=== PATIENT | male | born 1950 | race Caucasian/White ===

== ENCOUNTER → 2017-05-22 | Outpatient (CLI) | payer OTHER, MEDICARE | LOC: BHFA 08:45 | PROVIDERS: ATTEND Internal Medicine Cardiovascular Disease | DX: R07.9 Chest pain, unspecified (principal); R00.2 Palpitations; R01.1 Cardiac murmur, unspecified; E78.5 Hyperlipidemia, unspecified ==

== ENCOUNTER → 2017-06-05 | Outpatient (CLI) | payer OTHER, MEDICARE | LOC: BHFA 14:45 | PROVIDERS: ATTEND Internal Medicine Cardiovascular Disease | DX: R07.9 Chest pain, unspecified (principal) ==

== ENCOUNTER 2017-10-10 16:50 | Inpatient (IN) | payer OTHER, MEDICARE ==
[2017-10-10] MEDS ORDERED: NS 500 ML IV ONE (16:57)
[2017-10-10] MEDS ORDERED: ASPIRIN 81 MG CHEWABLE TAB PO ONE (16:57)
--- NOTE | 2017-10-10 16:57 | EDPHY ---
H & P Time Seen by Provider: 10/10/17 16:52 HPI/ROS: CHIEF COMPLAINT: Chest pain HISTORY OF PRESENT ILLNESS: Patient developed a burning sensation substernal area at 4:30 p.m. while he was working out at the gym doing the rowing machine. Substernal chest burning without radiation. A little bit of associated shortness of breath, symptoms mild to moderate. Slightly better after stopping exertion but not completely gone. REVIEW OF SYSTEMS: Eye: no change in vision ENT: no sore throat Cardiac: HPI Pulmonary: Mildly short of breath, no cough Abdomen: no vomiting, diarrhea, abdominal pain Musculoskeletal: no back pain Skin: no rash Neuro: no headache, no weakness or numbness in extremities. Constitutional: no fever : no urinary symptoms A comprehensive 10 point review of systems is otherwise negative aside from elements mentioned in the history of present illness. PAST MEDICAL HISTORY: Negative Social history: Former smoker General Appearance: Alert and conversant, cooperative. Eyes: No scleral icterus. ENT, Mouth: Normal mucous membranes. Respiratory: Normal respiratory effort, breath sounds equal, lungs are clear to auscultation. Cardiovascular: Regular rate and rhythm. Gastrointestinal: Abdomen is soft and non tender. Neurological: Alert, face symmetric, normal motor and sensory in extremities. Skin: Warm and dry, no rashes. Not diaphoretic. Musculoskeletal: No peripheral edema. Psychiatric: Not agitated. Emergency Department course/MDM: Cardiac alert called at 1654. Oral aspirin. Cardiac catheterization lab. Normal saline 1 L. 1659: Dr. Feliz at patient bedside. Smoking Status: Former smoker Constitutional: Initial Vital Signs Temperature (C) 36.4 C 10/10/17 16:52 Heart Rate 67 10/10/17 16:52 Respiratory Rate 18 10/10/17 16:52 Blood Pressure 120/79 10/10/17 16:52 O2 Sat (%) 98 10/10/17 16:52 O2 Delivery Mode Room Air Allergies/Adverse Reactions: No Known Allergies Allergy (Verified 10/10/17 16:51) Home Medications: Medication Instructions Recorded NK [No Known Home Meds] 10/10/17 Medical Decision Making - Diagnostics EKG Interpretation: 12-lead EKG interpreted by me; official reading is in trace master. My interpretation is sinus rhythm with acute ST elevation and inferior myocardial infarction Differential Diagnosis: Differential diagnosis considered for chest pain including but not limited to myocardial ischemia, aortic dissection, pericarditis, pulmonary embolus, chest wall pain, pleural inflammation and pulmonary infectious causes. Critical Care Time: Critical care time spent by me, Dr. Cooper, exclusively with the care of this patient was 20 minutes, exclusive of PA or [employer] time and exclusive of separate procedures. The organ system at risk was cardiovascular and I ordered the oral aspirin, IV fluids, multiple diagnostics, cardiology consultation emergently; to stabilize the patient and prevent worsening of the patient's condition. - Data Points Laboratory Results: Laboratory Results 10/10/17 16:55 10/10/17 16:55 10/10/17 10/10/17 16:55 16:55 WBC 8.82 10^3/uL 10^3/uL (3.80-9.50) RBC 4.69 10^6/uL 10^6/uL (4.40-6.38) Hgb 15.5 g/dL g/dL (13.7-17.5) Hct 43.7 % % (40.0-51.0) MCV 93.2 fL fL (81.5-99.8) MCH 33.0 pg pg (27.9-34.1) MCHC 35.5 g/dL g/dL (32.4-36.7) RDW 13.1 % % (11.5-15.2) Plt Count 284 10^3/uL 10^3/uL (150-400) MPV 9.5 fL fL (8.7-11.7) Neut % (Auto) 45.8 % % (39.3-74.2) Lymph % (Auto) 42.1 % % (15.0-45.0) [place] % (Auto) 8.4 % % (4.5-13.0) Eos % (Auto) 2.5 % % (0.6-7.6) Baso % (Auto) 1.0 % % (0.3-1.7) Nucleat RBC Rel Count 0.0 % % (0.0-0.2) Absolute Neuts (auto) 4.04 10^3/uL 10^3/uL (1.70-6.50) Absolute Lymphs (auto) 3.71 10^3/uL H 10^3/uL (1.00-3.00) Absolute Monos (auto) 0.74 10^3/uL 10^3/uL (0.30-0.80) Absolute Eos (auto) 0.22 10^3/uL 10^3/uL (0.03-0.40) Absolute Basos (auto) 0.09 10^3/uL 10^3/uL (0.02-0.10) Absolute Nucleated RBC 0.00 10^3/uL 10^3/uL (0-0.01) Immature Gran % 0.2 % % (0.0-1.1) Immature Gran # 0.02 10^3/uL 10^3/uL (0.00-0.10) Sodium 143 mEq/L mEq/L (135-145) Potassium 3.4 mEq/L L mEq/L (3.5-5.2) Chloride 103 mEq/L mEq/L (97-110) Carbon Dioxide 18 mEq/l L mEq/l (22-31) Anion Gap 22 mEq/L H mEq/L (8-16) BUN 18 mg/dL mg/dL (7-23) Creatinine 0.9 mg/dL mg/dL (0.7-1.3) Estimated GFR > 60 Glucose 132 mg/dL H mg/dL (70-100) Calcium 9.6 mg/dL mg/dL (8.5-10.4) Troponin I Pending Departure - Departure Disposition: To OP Cath/Surgery Clinical Impression: Acute AK Qualifiers: Myocardial infarction ST status: ST elevation myocardial infarction Involved coronary artery: unspecified coronary artery Qualified Code(s): I21.3 - ST elevation (STEMI) myocardial infarction of unspecified site Condition: Serious
[2017-10-10 17:05] LABS: PLATELET COUNT 284 10^3/uL (150-400)
--- NOTE | 2017-10-10 17:05 | CPEKG ---
Heart Rate: 65 RR Interval: 923 P-R Interval: 200 QRSD Interval: 108 QT Interval: 440 QTC Interval: 458 P Sherwood: 55 QRS Sherwood: 66 T Wave Sherwood: 81 EKG Severity - ABNORMAL ECG - EKG Impression: SINUS RHYTHM EKG Impression: INFERIOR INJURY, PROBABLE EARLY ACUTE INFARCT EKG Impression: CONSIDER POSTERIOR WALL INVOLVEMENT Electronically Signed By: Vitor Cooper 10-Oct-2017 17:22:53
[2017-10-10] MEDS ORDERED: MIDAZOLAM 2 MG/2 ML VIAL ONE (17:14)
[2017-10-10] MEDS ORDERED: LIDOCAINE 1% 300 MG/30 ML SDV ONE (17:14)
[2017-10-10] MEDS ORDERED: fentaNYL 100 MCG/2 ML INJ ONE ×2 (17:14→18:14)
[2017-10-10] MEDS ORDERED: IOPAMIDOL (ISOVUE-370) 150 ML BTL IV ONE ×2 (17:15→18:32)
[2017-10-10] MEDS ORDERED: BIVALIRUDIN 250 MG/5 ML VIAL IV ONE (17:16)
[2017-10-10] MEDS ORDERED: NITROGLYCERIN 1,500 MCG/15 ML VIAL MISC ONE (17:32)
[2017-10-10] MEDS ORDERED: ATROPINE SULFATE 1 MG/10 ML SYR ONE (17:37)
[2017-10-10] MEDS ORDERED: ABCIXIMAB 10 MG/5 ML VIAL ONE ×2 (17:49→17:53)
[2017-10-10] MEDS ORDERED: PRASUGREL HCL 10 MG TAB ONE (18:18)
[2017-10-10] MEDS ORDERED: NITROGLYCERIN/D5W 50 MG/250 ML BOTTLE IV ONE (18:51)
[2017-10-10] MEDS ORDERED: OXYCODONE/APAP 5/325 TAB PO PRN (19:29)
[2017-10-10] MEDS ORDERED: TEMAZEPAM 15 MG CAP PO PRN (19:29)
[2017-10-10] MEDS ORDERED: ATROPINE SULFATE 1 MG/10 ML SYR IVP PRN (19:29)
[2017-10-10] MEDS ORDERED: LORazepam 2 MG/ML INJ IVP PRN (19:29)
[2017-10-10] MEDS ORDERED: ONDANSETRON 4 MG/2 ML VIAL IVP PRN (19:29)
[2017-10-10] MEDS ORDERED: HYDROCODONE/APAP 5/325 TAB PO PRN (19:29)
[2017-10-10] MEDS ORDERED: PRASUGREL HCL 10 MG TAB PO ONE (19:29)
[2017-10-10] MEDS ORDERED: NITROGLYCERIN/DEXTROSE 250 ML IV SCH (19:30)
[2017-10-10] MEDS ORDERED: NS 1,000 ML IV SCH (19:30)
--- NOTE | 2017-10-10 19:51 | GHP ---
[f rep st] HISTORY AND PHYSICAL DATE OF ADMISSION: 10/10/2017 REASON FOR ADMISSION: Acute inferoposterior ST-segment elevation myocardial infarction. HISTORY OF PRESENT ILLNESS: The patient is a 67-year-old male with a history of hyperlipidemia and d ocumented coronary atherosclerosis based on a CT coronary calcium score performed in June of last year. He has never had a clinical cardiac episode. Today, he was exercising at the gym when he deve loped significant midsternal burning chest discomfort. There was no radiation, associated shortness of breath, nausea, or diaphoresis. He stopped exercising but his symptoms persisted. Therefore, he presented to the emergency room at [facility]. His initial ECG demonstrated at ed[facility] [address]-segment elevation. There was also a deep ST depression with inverted T-waves in the early precordial leads consistent with an acute inferoposterior myocardial infarction. In the ER, he continued to experience chest discomfort on a level 4/10 to 5/10. He was hemodynamically sta ble and did not exhibit any evidence of congestive heart failure. Past cardiac history and testing: He has a history of hyperlipidemia. Lipid panel performed in 2016 demonstrated a total cholesterol of 243, with HDL 53, LDL 170, and triglycerides 104. The p earline was started on statin therapy after an EBCT scan confirmed the presence of coronary atheroscle rosis. He developed side effects from his statin and interrupted it for some period of time. His CT coronary calcium score from June demonstrated a total Agatston score of 523.7. The left anterior descending had a total score of 463.9, the circumflex had a score of 59.8, and the RCA had a score o f zero. He was seen in our office in May for an exercise stress test. He had a standard exerc ise treadmill study during which he exercised 7 minutes 15 seconds of the Dick protocol, reaching 95 % of his maximum predicted heart rate. He had no symptoms. Upsloping ST-segment depression of 1.5 m m was noted in the inferolateral leads and was deemed not to be consistent with an ischemic response. He had an echocardiogram also in May of last year which demonstrated mild left ventricular di latation. His ejection fraction was 63% without regional wall motion abnormalities. He had mild aor tic valve calcification but no other structural valvular abnormalities. He had trivial aortic regurg itation, mild mitral regurgitation, and no tricuspid regurgitation. PAST MEDICAL HISTORY: Additional issues include a Dupuytren contracture, gout, and hyperglycemia. PAST SURGICAL HISTORY: He has no prior surgical history. FAMILY HISTORY: Noncontributory. MEDICATIONS: He takes aspirin but no other medications. ALLERGIES: No known drug allergies. SOCIAL HISTORY: He is . His accompanies him to the hospital today. He does not have an y offspring. He does not smoke. He consumes 2-3 alcoholic beverages a night. He works in [employer]. REVIEW OF SYSTEMS: Apart from the chest discomfort that prompted today's hospital encounter, a 10-po int review was negative. PHYSICAL EXAMINATION: VITAL SIGNS: Heart rate in the 60s with sinus rhythm on the monitor. Blood p ressure 120/79. O2 saturation 98% on room air. GENERAL: This is a well-developed, well-nourished m arline in moderate discomfort. He is alert and oriented x3. HEAD AND NECK: No scleral icterus. Mucou s membranes moist. Carotid pulses 2+ without bruits. There is no JVD. CHEST: Lung evangelista clear to auscultation. CARDIAC: Regular rate and rhythm with a normal S1 and S2. There is no murmur or gal lop. ABDOMEN: Soft, nontender, nondistended, with normal bowel sounds. EXTREMITIES: 2+ pulses and no peripheral edema. DATA REVIEWED: ECG: His ECG demonstrates normal sinus rhythm. There are no Q-waves or conduction s ystem disturbances. He has 2-[address]-segment elevation in leads II, III, and AVF. He has deep ST -segment depression in leads V1 through V3. Laboratory studies pending at the time of this dictation. IMPRESSION: This is a 67-year-old male who presents with chest discomfort and ECG findings diagnosti c of an acute inferoposterior myocardial infarction. He is hemodynamically stable and does not exhibi t any evidence of congestive heart failure. Preparations are underway to take the patient to the cardiac catheterization lab. There was a modest delay because simultaneous cases were taking place in both of the angiographic rooms. At the time I completed my assessment of the patient, one of the procedures has been completed. Dr. Light, who i s on-call this evening for our group, is now available and will perform the patient's catheterization and percutaneous coronary intervention. The patient will require a hospital stay of greater than 2 midnights for care of his myocardial infarction. /[id number]/MODL
[2017-10-10] MEDS ORDERED: PROTOCOL MAGNESIUM 1 DOSE IV PRN (20:19)
[2017-10-10] MEDS ORDERED: PROTOCOL POTASSIUM 1 DOSE MISC PRN (20:19)
--- NOTE | 2017-10-10 21:12 | CPIP ---
[f rep st] INVASIVE CARDIAC PROCEDURE DATE OF PROCEDURE: 10/10/2017 PROCEDURES PERFORMED: 1. Selective coronary angiography. 2. Left heart catheterization. 3. Left ventriculogram. 4. Percutaneous transluminal coronary angioplasty and stent placement of circumflex obtuse marginal system with the use of 4.0 X 16 Synergy drug-eluting stent. 5. Intracoronary thrombolysis with intracoronary ReoPro. COMPLICATIONS: None. DIRECTOR OF CATERING: John Light MD. INDICATIONS/APPROPRIATE USE CRITERIA: The patient has presented to the hospital with acute ST-segmen t elevation myocardial infarction involving the inferior wall and suspected posterior extension. Ple ase see the H and P dictated by Dr. Feliz for the patient's admission H and P. I was asked to gill at the patient tonight because I was b2b sales consultant. I did evaluate the patient before the procedure and it did appear to me that he was having an acute inferior and true posterior NJ. Cardiac catheterizatio n was recommended. PROCEDURE IN DETAIL: After informed consent was obtained, n.p.o. status was confirmed. The region o f the right groin was cleaned, prepped, and draped in sterile fashion. Approximately 5 cc of 1% lido stephanie were utilized for local anesthesia. A micropuncture set was used to gain access to the right c ommon femoral artery with single anterior puncture of the vessel. The patient underwent the previous ly-mentioned diagnostic procedures only with the use of an AR1 for the right coronary artery and a 6- Ivorian JL4 guiding catheter. Standard wire exchange technique was utilized for all catheter exchange s. I initially went up with a right coronary catheter, suspecting a nondominant right coronary given the patient's EKG findings. A after I could not easily intubate the right coronary artery wi th the JR4 indicated it was a nondominant vessel. We then proceeded with placement of a 6-Ivorian JR4 guiding catheter, documenting a total occlusion of the circumflex posteriorly proximal to the true c ircumflex and PDA vessels as well as OM branch. The left main coronary lumen is approximately 6 mm i n size, trifurcate into an LAD, ramus and circumflex system. As I mentioned, the circumflex is occlu ded with clot and staining consistent with acute myocardial infarction and is definitely acute infarc t related artery. The LAD arises in its usual location, giving rise to 2 diagonal branches, all of w hich were free of significant flow-limiting disease. Luminal irregularity consistent with underlying atherosclerosis is present, and linear atherosclerotic plaque is noted on the inferior border of the LAD proper. In the mid LAD, there is a prominent muscle bridge with near occlusion of the blood ves susan during systole over approximately 15-20 mm length. The LAD thereafter coursed the anterior apex and wraps around the apex moderately in a typical bifurcated and forked tongue appearance. We then u sed the Intuition wire to cross the lesion in question, advanced that into the obtuse marginal branch . A balloon angioplasty was accomplished, and establishment of the door to balloon time was establis hed with the balloon. There was evidence of a large residual thrombus with improvement to GERONIMO 1 liz w in the circumflex, obtuse marginal, and PDA branches. Because of the large volume of the thrombus and suspected platelet-rich thrombus environment, we did proceed with intracoronary ReoPro administra tion, which did improve the flow somewhat. I then placed a second wire into the left circumflex PDA and ballooned into that area as well. I pulled the circumflex obtuse marginal wire and then stented the circumflex proper trying to trap the majority of the clot against the vessel wall. I then balloo jo ann distally into the circumflex proper, pulled the balloon back and the stent delivery system back i nto the proximal circumflex, leaving the wire past the LAD and then redirected the wire into the circ umflex obtuse marginal branch and ballooned that open as well to try to get a flared end to the dista l stent. This caused no reflow in the obtuse marginal branch. We then reopen with the previously me ntioned 2-0 balloon. The patient continued to have residual ST-segment elevation and pain. The only branch that I could see in the circumflex system that was not open was a small subsegmental branch, which I did redirect a second wire into and ballooned that open. Because the patient continued to silverman ve pain, I became concerned that there may be a concomitant infarction in a codominant coronary on th e right side. We therefore performed a ventriculogram documenting the typical distal left circumflex obtuse marginal infarction. The basal and inferior segment of the heart appeared to be judson relatively normally, and the apex and anterior wall were actually hypercontractile with an ejection f raction that was 45% to 50% at minimum. The LVEDP was measured at 23, and there was no evidence of a ortic stenosis upon pullback across the aortic valve. It became apparent that it was likely that the re was a nondominant right coronary. A variety of catheters, including an AL1 catheter, Chet Wri ght, were used to try to selectively intubate the right coronary, which were unsuccessful. Ultimatel y, an AR1 was used with success to selectively inject the right coronary. This demonstrated excellen t GERONIMO-3 flow into a nondominant right with a fairly prominent atrial branch. There was no evidence of thrombus or staining to suggest an acute infarction of this nondominant vessel. Because of the re sidual ST-segment elevation and discomfort, we did go back with a 6-Ivorian diagnostic catheter and se lectively injected the left coronary system again, and this demonstrated brisk and GERONIMO-3 flow to the PDA, PLV, and circumflex obtuse marginal branches. FINAL IMPRESSION: Successful balloon angioplasty, acute infarct angioplasty, and stent implantation. The patient will be admitted in ICU in serious but stable condition on low-dose IV nitroglycerin fo r the residual ST-segment elevation chest discomfort. /[id number]/MODL
[2017-10-10 21:46] LABS: CREATINE KINASE 2729 IU/L (0-224)
[2017-10-10] MEDS ORDERED: MAGNESIUM SULF 1 GM/DEXTROSE 100 ML IV ONE (22:01)
[2017-10-11] MEDS ORDERED: MAGNESIUM SULF 1 GM/DEXTROSE 100 ML IV ONE (05:25)
[2017-10-11 05:46] LABS: CREATINE KINASE 2170 IU/L (0-224)
[2017-10-11] MEDS: POTASSIUM Cl (KCl) 10 MEQ in D5W 100 ML IV SCH ×2 (06:09→09:48)
[2017-10-11] MEDS ORDERED: ATROPINE SULFATE 1 MG/10 ML SYR ONE (06:37)
[2017-10-11] MEDS ORDERED: LISINOPRIL 5 MG TAB PO SCH ×2 (09:00→12:02)
--- NOTE | 2017-10-11 09:01 | CPEKG ---
Heart Rate: 50 RR Interval: 1200 P-R Interval: 173 QRSD Interval: 88 QT Interval: 472 QTC Interval: 431 P Flint: 44 QRS Flint: 23 T Wave Flint: 53 EKG Severity - ABNORMAL ECG - EKG Impression: SINUS BRADYCARDIA EKG Impression: INFERIOR INFARCT. EKG Impression: PROBABLE POSTERIOR INFARCT EKG Impression: COMPARED WITH 10/10/2017 AT 4:53 P.M., ST ELEVATION HAS RESOLVED Electronically Signed By: Keke Faulkner 11-Oct-2017 18:09:13
[2017-10-11] MEDS: ASPIRIN 325 MG TAB PO SCH (09:05)
[2017-10-11] MEDS: PRASUGREL HCL 10 MG TAB PO SCH (09:05)
[2017-10-11] MEDS: ATORVASTATIN CALCIUM 40 MG TAB PO SCH (09:05)
[2017-10-11] MEDS ORDERED: POTASSIUM CL 20 MEQ TAB PO ONE (09:30)
[2017-10-11] MEDS: CARVEDILOL 3.125 MG TAB PO SCH ×2 (09:47→19:10)
--- NOTE | 2017-10-11 11:10 | ECHO ---
[email or web address] [address] [address] Main: [phone] Fax: Transthoracic Echocardiogram Name: MARIA GUADALUPE MOSS MR#: [id number] Study Date: 10/11/2017 Study Time: 08:19 AM Date of : 1950 Age: 67 year(s) Height: 182.9 cm (72 in.) Weight: 98.43 kg (217 lb.) BSA: 2.21 m2 Gender: Male Examination: Echo Indication: Inferior and true posterior IN Image Quality: Contrast: Requested by: John Light BP: 94 mmHg/57 mmHg Heart Rate: Rhythm: Normal sinus rhythm Indication: Inferior and true posterior IN Procedure Staff Detonator Maker: Shalom Lu RDCS Reading Physician: William Feliz Requesting Provider: Conclusions: Normal size left ventricle. There is basilar to mid inferolateral and basilar to mid inferior hypokinesis. The EF is estimated at 45-50%. Normal appearing valvular structures. No significant valve dysfunction. Measurements: Chambers Valvular Assessment AV/MV Valvular Assessment TV/PV Normal Normal Normal Name Value Range Name Value Range Name Value Range IVSd (2D): 1.2 cm (0.6 cm-1.1 AV Vmax: 1.37 m/s (1 m/s-1.7 PV Vmax: 0.71 m/s (0.6 m/s-0.9 cm) m/s) m/s) LVDd (2D): 5.1 cm (4.2 cm-5.9 AV maxP mmHg ( - ) PV PGmax: 2 mmHg ( - ) cm) LVOT Vmax: 0.91 m/s (0.7 m/s-1.1 LVDs (2D): 4.0 cm (2.1 cm-4 m/s) cm) MV E Vmax: 0.88 m/s ( - ) LVPWd (2D): 1.2 cm (0.6 cm-1 MV A Vmax: 0.76 m/s ( - ) cm) MV E/A: 1.16 ( - ) LVEF (BP): 54 % (>=55 %) Continued Measurements: Chambers Valvular Assessment AV/MV Name Value Name Value LADs Lon.4 cm MV E/E' Septal: 19.30 LA Area: 16.2 cm2 MV E/E' Lateral: 15.40 Findings: Left Ventricle: Patient: MARIA GUADALUPE MOSS Study Date: 10/11/2017 Page 1 of 2 08:19 AM Normal size left ventricle. There is basilar to mid inferolateral and basilar to mid inferior hypokinesis. The EF is estimated at 45-50%. Right Ventricle: Normal size right ventricle. Normal RV function. Left Atrium: The left atrium is normal in size. Right Atrium: The right atrium is normal in size. Mitral Valve: The mitral valve is normal in appearance and function. There is no mitral valve regurgitation. Aortic Valve: The aortic valve is tri-leaflet and functions normally. Tricuspid Valve: The tricuspid valve is normal in appearance and function. Pulmonic Valve: The pulmonic valve is normal in appearance and function. Aorta: The aorta is normal. Pericardium: No pericardial effusion. (No Signature Object) Patient: MARIA GUADALUPE MOSS Study Date: 10/11/2017 Page 2 of 2 08:19 AM [id number]
[2017-10-11] MEDS ORDERED: ACETAMINOPHEN 325 MG TAB PO PRN (13:37)
[2017-10-11] MEDS ORDERED: PROTOCOL POTASSIUM 1 DOSE MISC PRN (14:50)
[2017-10-11 15:16] LABS: CREATINE KINASE 2078 IU/L (0-224)
--- NOTE | 2017-10-11 15:22 | PDCARPN ---
Cardiology Progress Note Assessment/Plan: Inferoposterior ST Elevation NM: No further chest discomfort. ST segment elevation on ECG resolved. Has minimal inferior Q-waves. CPK peaked at 2729. Troponin peaked at 79.9. Coronary Artery Disease: s/p PCI of occluded, dominant circumflex with placement of a single drug-coated stent. PTCA of distal circumflex and OM for significant thrombus burden. Nondominant RCA has mild to moderate irregularities. Mid-LAD demonstrates a myocardial bridge but no significant atherosclerosis. - Aggressive secondary prevention. - Patient now willing to take atorvastatin. - Dual antiplatelet therapy for 12 months. Ischemic Cardiomyopathy: LVEF 40-45%. No signs or symptoms of CHF. Based on early presentation and PCI, expect that his LV function should improve to some degree. - Continue beta jose miguel and LETI inhibitor. 10/11/17 15:19 Subjective: No chest pain. Reviewed/Discussed With: family Objective: Vital Signs (8 Hrs) Pulse Resp BP Pulse Ox 10/11/17 12:00 49 L 18 103/56 L 98 10/11/17 09:00 52 L 18 94/56 L 94 Intake/Output (24 Hrs) 10/10/17 10/11/17 10/12/17 05:59 05:59 05:59 Intake Total 1625 Output Total 740 300 Balance -740 1325 Intake: Oral (ml) 750 IV Infused (ml) 875 Nitroglycerin/Dextrose 11 250 ml @ 3 mls/hr IV CONT CRISTIAN Rx#:[id number] Ns 1,000 ml @ 100 mls/hr 864 IV CONT CRISTIAN Rx#: [id number] Output: Urine (ml) 740 300 Urinal 740 300 Other: Weight 98.8 kg Number of Voids Urinal 1 Result Diagrams: 10/10/17 16:55 10/11/17 14:00 Cardiac Labs: Cardiac Lab Results (72 Hrs) 10/11/17 10/11/17 10/11/17 14:00 13:28 04:40 CK-MB (CK-2) Fraction 90.20 H Cancelled 144.00 H Troponin I 79.200 H Cancelled 79.900 H 10/10/17 20:50 CK-MB (CK-2) Fraction 164.00 H Troponin I 57.200 H - Physical Exam Constitutional: WDWN, no apparent distress Eyes: anicteric sclera Ears, Nose, Mouth, Throat: moist mucous membranes Cardiovascular: regular rate and rhythm, no murmurs, no rubs, no gallops Respiratory: clear to auscultate bilat Gastrointestinal: normoactive bowel sounds, no tenderness, no masses Skin: no edema Neurologic: AAOx3 Psychiatric: not anxious ICD10 Worksheet Patient Problems: Problems Problem Status Onset Acute NM Acute chronic disease mgmt/transitional care Acute
--- NOTE | 2017-10-11 16:03 | ASMTCASEMG ---
Living Arrangements What is your living Answers: With Spouse arrangement? Who do you live with? Type Of Residence What kind of residence do Answers: House you live in? Discharge Plan Comments Coordination Status Comments Notes: Patient is a 67yo male who was admitted for an acute WA. Patient had a stent procedure and is recovering well. No therapies have been ordered. Patient likely to go to the floor today and probably d/c independent. CM available if d/c needs arise. Date Signed: 10/11/2017 04:02 PM Electronically Signed By:Sylwia Cowart LCSW
--- NOTE | 2017-10-11 16:11 | GCON ---
[f rep st] CONSULTATION CRITICAL CARE CONSULT DATE OF CONSULTATION: 10/11/2017 HISTORY OF PRESENT ILLNESS: This patient is a 67-year-old male with a history of hyperlipidemia and hyperglycemia but not orquidea diabetes, who has been fairly active and stable but yesterday had chest p ain, came to the emergency department, was found to have an ST-elevation myocardial infarction, went to the label printer where he underwent intervention with stent placement. He has done very well after th at; his blood pressure was somewhat low, but has recovered mostly on its own. His heart rate was in the 40s, but he typically runs low in the 50s, and is without symptoms at this time. REVIEW OF SYSTEMS: Otherwise negative. PAST MEDICAL HISTORY: Includes: 1. Gout. 2. Hyperlipidemia. 3. Hyperglycemia. 4. Vitamin D deficiency. 5. Dupuytren's contractures. PAST SURGICAL HISTORY: None. SOCIAL HISTORY: Nonsmoker. Drinks occasional alcohol. No IV drug use. FAMILY HISTORY: Includes stroke, leukemia and hypertension. CURRENT MEDICATIONS: Include [place], aspirin, Lipitor, Coreg which has been held, Zestril, Zofran, Ef fient, Restoril p.r.n. PHYSICAL EXAM: VITAL SIGNS: He was afebrile. Blood pressure currently 103/56, heart rate 49 in sin us maggie, respirations 18, oxygen saturation 98% on room air. GENERAL: He is very pleasant man in n o apparent distress. Able to speak in full sentences without using accessory muscles for breathing. HEENT: Pupils equally round and reactive to light. Nonicteric and noninjected. Mucous membranes m oist without erythema or exudate. NECK: Supple without adenopathy or jugular vein distention. RESP IRATORY: Breath sounds were clear to auscultation bilaterally without wheezes, rubs, rales. HEART: Regular rate and rhythm without murmurs, rubs, or gallops. ABDOMEN: Soft, nontender, nondistended without hepatosplenomegaly. Groin showed no evidence of hematoma. EXTREMITIES: No clubbing, cyanos is, or edema. NEUROLOGIC: Nonfocal, including cranial nerves, deep tendon reflexes. SKIN: Warm an d dry, without evidence of rash. OBJECTIVE DATA: Includes a normal CBC from yesterday. His basic metabolic panel shows potassium of 3.4, which is currently being replaced. His serum bicarb 16, anion gap of 9, creatinine 0.6, LDL was at 70. ASSESSMENT AND PLAN: 1. Acute ST-elevation myocardial infarction, from which he is recovering from quite well. He had an intervention. He is relatively stable and can probably transfer to the PCU at this time. 2. Sinus bradycardia. I believe that he is very active and aerobically, this is probably his baseli ne as he reports, and no further intervention is required. We may need to consider holding back on a beta jose miguel at this time for that reason. He is otherwise stable. /[id number]/MODL
--- NOTE | 2017-10-12 05:45 | CPEKG ---
Heart Rate: 61 RR Interval: 984 P-R Interval: 164 QRSD Interval: 96 QT Interval: 448 QTC Interval: 452 P [place]: 47 QRS [place]: 58 T Wave [place]: -33 EKG Severity - ABNORMAL ECG - EKG Impression: SINUS RHYTHM EKG Impression: LOW VOLTAGE IN FRONTAL LEADS EKG Impression: INFERIOR MYOCARDIAL INFARCTION. EKG Impression: NONSPECIFIC T ABNORMALITIES, INFERIOR LEADS EKG Impression: COMPARED WITH 10/11/2017 AT 8:59 A.M., NO SIGNIFICANT CHANGE Electronically Signed By: Keke Faulkner 12-Oct-2017 14:21:51
[2017-10-12 08:19] VITALS: BP 133/63; RESP 18; TEMP 99.2; O2SAT 94
[2017-10-12] MEDS: PRASUGREL HCL 10 MG TAB PO SCH (08:20)
[2017-10-12] MEDS: ATORVASTATIN CALCIUM 40 MG TAB PO SCH (08:20)
[2017-10-12] MEDS: ASPIRIN 325 MG TAB PO SCH (08:20)
[2017-10-12] MEDS: CARVEDILOL 3.125 MG TAB PO SCH (08:20)
[2017-10-12 08:23] VITALS: PULSE 90
--- NOTE | 2017-10-12 08:54 | PDCARPN ---
Cardiology Progress Note Chief Complaint: Admitted with Acute IL on Oct 10 Assessment/Plan: Assessment: 1. STEMI 2. PCI to LCX 3. ICM with LVEF 45-50% Plan: 1. Ok to discharge home today 2. He has been seen by cardiac rehab 3. He has follow up with Dr. Feliz for next week 4. Discussed post Left Heart Cath care of groin site 5. Medications reviewed. 10/12/17 08:52 Subjective: Mr. Vega is feeling well this morning. No new complaints. Vital signs stable. No events on telemetery. Noted chronic bradycardia which is his baseline. Labwork stable. Groin site without hematoma or ecchymosis. Reviewed/Discussed With: multidisciplinary team Time Spent With Patient: 25 min Objective: Vital Signs (8 Hrs) Temp Pulse Resp BP Pulse Ox 10/12/17 08:21 133/63 H 10/12/17 08:20 90 133/63 H 10/12/17 08:16 37.3 C 64 18 133/63 H 94 10/12/17 04:19 37.7 C 63 16 105/61 92 Intake/Output (24 Hrs) 10/11/17 10/12/17 10/13/17 05:59 05:59 05:59 Intake Total 2875 Output Total 740 300 Balance -740 2575 Intake: Oral (ml) 2000 IV Infused (ml) 875 Nitroglycerin/Dextrose 11 250 ml @ 3 mls/hr IV CONT CRISTIAN Rx#:[id number] Ns 1,000 ml @ 100 mls/hr 864 IV CONT CRISTIAN Rx#: [id number] Output: Urine (ml) 740 300 Urinal 740 300 Other: Weight 98.8 kg Number of Voids Toilet 2 Urinal 1 4 Result Diagrams: 10/10/17 16:55 10/12/17 04:15 Cardiac Labs: Cardiac Lab Results (72 Hrs) 10/11/17 10/11/17 10/11/17 14:00 13:28 04:40 CK-MB (CK-2) Fraction 90.20 H Cancelled 144.00 H Troponin I 79.200 H Cancelled 79.900 H 10/10/17 20:50 CK-MB (CK-2) Fraction 164.00 H Troponin I 57.200 H - Physical Exam Constitutional: WDWN Ears, Nose, Mouth, Throat: moist mucous membranes Cardiovascular: regular rate and rhythm, no murmurs, no rubs, no gallops Peripheral Pulses: 2+: carotid (R), carotid (L) Respiratory: clear to auscultate bilat Neurologic: AAOx3, CN II-XII grossly intact Psychiatric: cooperative, interactive, following commands ICD10 Worksheet Patient Problems: Problems Problem Status Onset Acute IL Acute chronic disease mgmt/transitional care Acute
--- NOTE | 2017-10-12 09:24 | GDS ---
[f rep st] DISCHARGE SUMMARY INDICATION FOR ADMISSION: Acute ST-segment elevation inferior posterior myocardial infarction. HOSPITAL COURSE: [facility] with compla ints of chest pain that began while on his rowing machine. He was found to have inferior posterior a cute myocardial infarction and went directly to cardiac catheterization lab. He was found to have a proximal occlusion of his dominant circumflex vessel. He underwent a single stent with a 4.0 x 16 mm Synergy drug-eluting stent to obtuse marginal branch of the circumflex vessel. He tolerated the pro cedure well. There was intracoronary thrombus and he required intracoronary ReoPro as well. His pos toperative course was uneventful. Postoperative echocardiogram demonstrated LVEF of 45% to 50%. Mon itoring on telemetry demonstrated chronic sinus bradycardia. He is known to have chronic bradycardia at home. On the morning of October 12, 2017, he was stable for discharge. Vital signs were stable. Groin sit e was stable. No evidence of hematoma or ecchymosis, and no events on telemetry. He was discharged home on the following medications: 1. Aspirin 325 mg once daily. 2. Effient 10 mg daily. 3. Coreg 3.125 mg p.o. b.i.d. 4. Lisinopril 2.5 mg once daily. 5. Atorvastatin 80 mg daily. Changes to his medications include increasing atorvastatin to 80 mg daily and increasing his aspirin from 81-325 mg daily. PLAN AT TIME OF DISCHARGE: 1. Patient be discharged home. 2. The patient has been seen by cardiac rehab, and will plan to start after his appointment with Dr. Feliz. 3. Patient has been arranged for followup with Dr. Feliz next week. 4. Medications have been reviewed in detail. /[id number]/MODL
--- NOTE | 2017-10-13 16:05 | ASDISCHSUM ---
Discharge Information Plan Status:Home with No Needs Medically Cleared to Leave:10/11/2017 Discharge Date:10/12/2017 10:28 AM CM D/C Disposition:Home, Routine, Self-Care ADT D/C Disposition:Home, Routine, Self-Care Projected Discharge Date:10/12/2017 12:00 AM Transportation at D/C:Family Discharge Delay Reason: Follow-Up Date:10/12/2017 12:00 AM Discharge Slot: Final Diagnosis:Acute AK Placement Information Patient Contact Information Contact Name:MORENO Relationship: Address:[address] City:[place] Alternate Phone: [facility]/Zip Code:[place] [address] Email: Financial Information Financial Class: Primary Plan Desc:MEDICARE INPATIENT Primary Plan Number:[id number] Secondary Plan Desc:[employer]/MDR SUPPLEMENT Secondary Plan Number:[id number] Assessment Information [facility] Initial CM Assessment Living Arrangements What is your living Answers: With Spouse arrangement? Who do you live with? Type Of Residence What kind of residence do Answers: House you live in? Discharge Plan Comments Coordination Status Comments Notes: Patient is a 67yo male who was admitted for an acute AK. Patient had a stent procedure and is recovering well. No therapies have been ordered. Patient likely to go to the floor today and probably d/c independent. CM available if d/c needs arise. Date Signed: 10/11/2017 04:02 PM Electronically Signed By:Sylwia Cowart LCSW Case Management Discharge Plan Note Case Management Discharge Discharge Order Complete? Answers: Yes Patient to Obtain Answers: via Family Medications Transportation Arranged Answers: Family/Friends Transport will Pick (Date 10/12/2017 12:00 AM & Time) Family Notified Answers: Yes Notes: Family to transport Discharge Comments Notes: Patient has been discharged. No needs. Date Signed: 10/13/2017 04:04 PM Electronically Signed By:Massiel Nelson LCSW Intervention Information Intervention Type:*Occurence 72 Date of Service:10/10/2017 04:52 PM Patient Type:Inpatient Staff Member:SPARKLE Flores, Ailin Hours:0.25 Discipline: Severity:1 (0-1 Hours) Comment:[facility] 72 for 10/10/2016 16:52 ( start of care in ED obs status to 10/11/2017 09:38 as jackosn nt discharged 10/12/2017 09:02 (< 2 MN LOS after start of care in ED 10/10/2017 16:52, 1st MN obs status , inpatient admit order written 10/11/2017 09:38).
== END 2017-10-12 10:28 | disposition home or self-care (01) | DRG 247 ==
LOC: F2N 19:08
PROVIDERS: ADMIT Internal Medicine Interventional Cardiology; ATTEND Internal Medicine Interventional Cardiology
PROC: B2111ZZ Fluoroscopy of Multiple Coronary Arteries using Low Osmolar Contrast (ICD-10-PCS; principal; 2017-10-10)
PROC: B2151ZZ Fluoroscopy of Left Heart using Low Osmolar Contrast (ICD-10-PCS; principal; 2017-10-10)
PROC: 3E073PZ Introduction of Platelet Inhibitor into Coronary Artery, Percutaneous Approach (ICD-10-PCS; principal; 2017-10-10)
PROC: 027034Z Dilation of Coronary Artery, One Artery with Drug-eluting Intraluminal Device, Percutaneous Approach (ICD-10-PCS; principal; 2017-10-10)
PROC: 4A023N7 Measurement of Cardiac Sampling and Pressure, Left Heart, Percutaneous Approach (ICD-10-PCS; principal; 2017-10-10)
DX: I21.19 ST elevation (STEMI) myocardial infarction involving other coronary artery of inferior wall (principal); I25.10 Atherosclerotic heart disease of native coronary artery without angina pectoris; R00.1 Bradycardia, unspecified; E78.5 Hyperlipidemia, unspecified; E55.9 Vitamin D deficiency, unspecified; M10.9 Gout, unspecified; Z87.891 Personal history of nicotine dependence
CPT/HCPCS: 81225-90; 96374; C1725; C1760; C1769; C1874; C1887; C9606; J0130; J0461; J0583; J1644; J2250; J2405; J3010; J3475; Q9967

== ENCOUNTER → 2018-01-06 | Outpatient (CLI) | payer OTHER, MEDICARE | LOC: BHFA 14:00 | PROVIDERS: ATTEND Internal Medicine Interventional Cardiology | DX: I25.10 Atherosclerotic heart disease of native coronary artery without angina pectoris (principal) ==

== ENCOUNTER 2018-02-04 04:29 | Observation (INO) | payer OTHER, MEDICARE ==
--- NOTE | 2018-02-04 04:45 | EDPHY ---
H & P Stated Complaint: right side CP Time Seen by Provider: 02/04/18 04:35 HPI/ROS: Chief Complaint: Chest pain, palpitations HPI: This is a 67-year-old male with a history of an inferior ST segment elevation myocardial infarction in September of this year. He was seen here and had a stent placed by Dr. Feliz. Patient woke at 2:30 a.m. This morning with a feeling of palpitations and the pain in his right upper back. That discomfort was a 4/10. It lasted for about 30 min. The palpitations continued in then he developed some substernal chest tightness, this too was about a 4/10 and is persisted. This does not feel like his prior myocardial infarction. Is described as a tightness in his chest. Some mild shortness of breath. No recent illness. No cough. No fevers or chills. No leg pain or swelling. No periods of immobility. No nausea or vomiting. There been no aggravating or alleviating factors. ROS: 10 point Review of Systems is negative except as noted in the HPI. PMH: ST segment myocardial infarction in September, bradycardia Social History: Remote history of smoking, occasional alcohol, no recreational drug use Family History: non-contributory Physical Exam: Gen: Awake, Alert, No Distress HEENT: Nose: no rhinorrhea Eyes: PERRLA, EOMI Mouth: Moist mucosa Neck: Supple, no JVD Chest: nontender, lungs clear to auscultation Heart: S1, S2 normal, no murmur Abd: Soft, non-tender, no guarding Back: no CVA tenderness, no midline tenderness Ext: no edema, non-tender Skin: no rash Neuro: CN II-XII intact, Sensation grossly intact, Strength 5/5 in bilateral upper and lower extremities - Personal History Current Tetanus/Diphtheria Vaccine: No Current Tetanus Diphtheria and Acellular Pertussis (TDAP): No Tetanus Vaccine Date: 2006 - Medical/Surgical History Hx Asthma: No Hx Chronic Respiratory Disease: No Hx Diabetes: No Hx Cardiac Disease: Yes Hx Renal Disease: No Hx Cirrhosis: No Hx Alcoholism: No Hx HIV/AIDS: No Hx Splenectomy or Spleen Trauma: No Other PMH: gout, [place] - Social History Smoking Status: Former smoker Constitutional: Initial Vital Signs Temperature (C) 36.5 C 02/04/18 04:33 Heart Rate 65 02/04/18 04:33 Respiratory Rate 16 02/04/18 04:33 Blood Pressure 139/92 H 02/04/18 04:33 O2 Sat (%) 97 02/04/18 04:33 O2 Delivery Mode Room Air Allergies/Adverse Reactions: No Known Allergies Allergy (Verified 02/04/18 04:35) Home Medications: Medication Instructions Recorded Herbals/Supplements -Info Only 1 ea PO DAILY 10/10/17 Aspirin [Aspirin 325 mg (*)] 325 mg PO DAILY tab 10/12/17 Atorvastatin Calcium [Lipitor 40 40 mg PO DAILY #30 tab 10/12/17 mg (*)] Atorvastatin Calcium [Lipitor 40 80 mg PO DAILY tab 10/12/17 mg (*)] Carvedilol [Coreg (*)] 3.125 mg PO BIDMEAL #60 tab 10/12/17 Lisinopril [Zestril 5 mg (*)] 2.5 mg PO DAILY #30 tab 10/12/17 Prasugrel HCl [Effient 10mg (*)] 10 mg PO DAILY #30 tab 10/12/17 Medical Decision Making - Diagnostics EKG Interpretation: ECG time is 4:42 a.m., this is a sinus rhythm with a rate of 64, there is normal axis. There are normal intervals, there are Q-waves in leads to 3 in AVF which are consistent with the old inferior infarct, no acute ST or T-wave changes at this time. Imaging Results: Chest x-ray is normal per my interpretation Imaging: I viewed and interpreted images myself ED Course/Re-evaluation: 67-year-old male with a history of a STEMI in September presenting with substernal chest pain which is now resolved. ECG shows old Q-waves consistent with prior infarct but no acute changes. Troponin is negative. He is pain free. Gotten 325 mg of aspirin here. Will be admitted to the hospitalist service for further monitoring. - Data Points Laboratory Results: Laboratory Results 02/04/18 04:43 02/04/18 04:43 02/04/18 02/04/18 04:43 04:43 WBC 7.46 10^3/uL 10^3/uL (3.80-9.50) RBC 4.64 10^6/uL 10^6/uL (4.40-6.38) Hgb 15.0 g/dL g/dL (13.7-17.5) Hct 42.5 % % (40.0-51.0) MCV 91.6 fL fL (81.5-99.8) MCH 32.3 pg pg (27.9-34.1) MCHC 35.3 g/dL g/dL (32.4-36.7) RDW 13.3 % % (11.5-15.2) Plt Count 215 10^3/uL 10^3/uL (150-400) MPV 9.8 fL fL (8.7-11.7) Neut % (Auto) 56.2 % % (39.3-74.2) Lymph % (Auto) 32.2 % % (15.0-45.0) [place] % (Auto) 7.9 % % (4.5-13.0) Eos % (Auto) 2.7 % % (0.6-7.6) Baso % (Auto) 0.7 % % (0.3-1.7) Nucleat RBC Rel Count 0.0 % % (0.0-0.2) Absolute Neuts (auto) 4.20 10^3/uL 10^3/uL (1.70-6.50) Absolute Lymphs (auto) 2.40 10^3/uL 10^3/uL (1.00-3.00) Absolute Monos (auto) 0.59 10^3/uL 10^3/uL (0.30-0.80) Absolute Eos (auto) 0.20 10^3/uL 10^3/uL (0.03-0.40) Absolute Basos (auto) 0.05 10^3/uL 10^3/uL (0.02-0.10) Absolute Nucleated RBC 0.00 10^3/uL 10^3/uL (0-0.01) Immature Gran % 0.3 % % (0.0-1.1) Immature Gran # 0.02 10^3/uL 10^3/uL (0.00-0.10) Sodium 145 mEq/L mEq/L (135-145) Potassium 3.6 mEq/L mEq/L (3.3-5.0) Chloride 110 mEq/L mEq/L (97-110) Carbon Dioxide 23 mEq/l mEq/l (22-31) Anion Gap 12 mEq/L mEq/L (8-16) BUN 18 mg/dL mg/dL (7-23) Creatinine 0.8 mg/dL mg/dL (0.7-1.3) Estimated GFR > 60 Glucose 120 mg/dL H mg/dL (70-100) Calcium 9.1 mg/dL mg/dL (8.5-10.4) Troponin I < 0.012 ng/mL ng/mL (0.000-0.034) Medications Given: Discontinued Medications Aspirin (Aspirin) 324 mg PO EDNOW ONE Stop: 02/04/18 04:54 Last Admin: 02/04/18 04:54 Dose: 324 mg Departure - Departure Disposition: [facility] Inpatient Acute Clinical Impression: Chest pain Condition: Fair
[2018-02-04] MEDS ORDERED: ASPIRIN 81 MG CHEWABLE TAB ONE (04:48)
[2018-02-04] MEDS ORDERED: ASPIRIN 325 MG TAB ONE (04:48)
[2018-02-04] MEDS ORDERED: ASPIRIN 81 MG CHEWABLE TAB PO ONE (04:53)
[2018-02-04 05:03] LABS: PLATELET COUNT 215 10^3/uL (150-400)
[2018-02-04] MEDS ORDERED: ACETAMINOPHEN 325 MG TAB PO PRN (05:42)
[2018-02-04] MEDS ORDERED: ONDANSETRON 4 MG/2 ML VIAL IVP PRN (05:42)
[2018-02-04] MEDS ORDERED: HYDROCODONE/APAP 5/325 TAB PO PRN (05:42)
[2018-02-04] MEDS ORDERED: NS 1,000 ML IV SCH (05:45)
[2018-02-04] MEDS ORDERED: NITROGLYCERIN 0.4 MG BTL SL PRN (09:12)
[2018-02-04] MEDS ORDERED: NITROGLYCERIN 0.4 MG BTL SL ONE (09:13)
--- NOTE | 2018-02-04 09:27 | CPEKG ---
Heart Rate: 60 RR Interval: 1000 P-R Interval: 192 QRSD Interval: 96 QT Interval: 448 QTC Interval: 448 P [place]: 53 QRS [place]: 25 T Wave [place]: -3 EKG Severity - ABNORMAL ECG - EKG Impression: SINUS RHYTHM EKG Impression: PROBABLE INFERIOR INFARCT, AGE INDETERMINATE Electronically Signed By: Giovanni Cain 04-Feb-2018 10:35:00
[2018-02-04] MEDS ORDERED: ASPIRIN EC 325 MG TAB PO ONE (10:00)
[2018-02-04] MEDS ORDERED: FAMOTIDINE 20 MG TAB PO ONE ×2 (10:00→14:00)
[2018-02-04] MEDS ORDERED: diphenhydrAMINE 25 MG CAP PO ONE ×2 (10:00→14:00)
[2018-02-04] MEDS ORDERED: TEMAZEPAM 15 MG CAP PO PRN (10:00)
[2018-02-04] MEDS ORDERED: DIAZEPAM 5 MG TAB PO ONE ×2 (10:00→14:00)
[2018-02-04] MEDS ORDERED: LIDOCAINE 2% VISCOUS 15 ML UDCUP PO ONE (10:12)
[2018-02-04] MEDS ORDERED: HYOSCYAMINE SULFATE 0.125 MG TAB PO ONE (10:12)
[2018-02-04] MEDS ORDERED: MAG HYDROX/AL HYDROX/SIMETH 30 ML UDCUP PO ONE (10:12)
--- NOTE | 2018-02-04 11:28 | GHP ---
[f rep st] HISTORY AND PHYSICAL DATE OF ADMISSION: 02/04/2018 CHIEF COMPLAINT: Chest pain. HISTORY OF PRESENT ILLNESS: A 67-year-old male with a history of recent NE and stent placement to hi s circumflex in September of 2017, who reports being in excellent state of health post procedure with g ood medication compliance when in the several days preceding his presentation to the hospital started developing a sensation in the right back that seems similar to his preceding cardiac event. The pat marcelina then awoke the morning of presentation with a chest discomfort pressure on the anterior portion of his chest with marked worsening of his right back discomfort therefore prompting his re-evaluation in the emergency department. The patient reports that the pain is similar to his previous episode, although less intense, is associated with some shortness of breath. No nausea, vomiting. No dizzine ss. No palpitations. Denies any changes to his bowel habits, dysuria, hematuria, lower extremity ed pipe. PAST MEDICAL HISTORY: 1. Coronary artery disease status post stenting of the left circumflex in September 2017. 2. Gout. 3. History of Dupuytren's contracture. 4. Hyperlipidemia. SOCIAL HISTORY: Negative for tobacco. Occasional alcohol. No illicit drugs or marijuana. FAMILY HISTORY: Negative for heart disease. REVIEW OF SYSTEMS: A 10-point review of systems is negative with the exception of reported in the HP I. PHYSICAL EXAMINATION: VITAL SIGNS: Blood pressure 131/107, heart rate 60, respiratory rate 16, 97% on room air, 37.0. GENERAL: This is a healthy-appearing middle-aged male in no acute distress. NEFTALY NT: Notable for moist mucous membranes. Eye exam negative for any icterus. CARDIAC: Patient is re gular rate and rhythm. PULMONARY: Clear to auscultation bilaterally. GASTROINTESTINAL: Positive b owel sounds. ABDOMEN: Soft and nontender in all 4 quadrants. MUSCULOSKELETAL: Negative for any lo wer extremity edema. SKIN: Negative for any rashes. NEUROLOGIC: He is alert and oriented x3. PSY CHIATRIC: He is pleasant, cooperative on interview and examination. DATA: White count 7.4, hematocrit 42.5, platelets 215. Creatinine 0.8, blood glucose 120. Troponin less than 0.012. EKG which I personally reviewed and interpreted, shows sinus rhythm, normal axis, normal intervals, with no acute ST-T changes. Chest x-ray, which I personally reviewed and interpret ed, shows no acute infiltrates or edema. ASSESSMENT AND PLAN: A 67-year-old male with a history of coronary artery disease status post recent stenting, presenting with chest pain. 1. Acute chest pain. We will admit the patient to the PCU for serial troponin and EKGs, keeping the patient n.p.o. at this time until Cardiology consultation and recommendations related to risk strati fication versus cardiac catheterization. The patient received an aspirin in the emergency department . Will continue his cardiac medications when reconciled. 2. Prophylaxis with Lovenox. 3. Diet. N.p.o. until evaluated by Cardiology. DISPOSITION: I expect in less than 2 midnights if patient's cardiac workup is negative. I have disc ussed the case with [facility]. They will consult and make recommendations related to the next st ep of the patient's diagnostic workup. /[id number]/MODL
--- NOTE | 2018-02-04 11:58 | GCON ---
[f rep st] CONSULTATION CARDIOLOGY CONSULT REASON FOR CONSULTATION: We are asked by Dr. Luli Hidalgo of [facility] to evaluate this p atient for his chest discomfort. HISTORY OF PRESENT ILLNESS: The patient is a 67-year-old male with recent inferior MN in September of 2017, status post PTCA and stenting with a Synergy 4.0 x 16 mm stent to obtuse marginal, and intracor onary ReoPro for left circumflex thrombus, dyslipidemia, ischemic cardiomyopathy with a low normal LV EF of 50% on his last echo, who presents for the evaluation of chest discomfort. He reports that ove r the past few days, he has had a right-sided upper back discomfort. He will note this at rest and t ypically symptoms will last 30 minutes or so. There are no alleviating or exacerbating factors to th is. He notes that this similar discomfort preceded his MN. Since his stenting, he had not had recur rence of this discomfort until the past few days. Additionally, this morning, he noted that his hear t felt irregular and he had a midsternal discomfort that feels like a more burning discomfort. This has been recurrent and actually he has been given nitroglycerin for this in this admission. Despite nitroglycerin, he is at a 2/10 currently. He denies any recent illness or medication noncompliance. He denies any recent injury to his back. He did paint while remodeling a room in his house about 2 weeks ago. After painting, he has not really had any discomfort until the last few days. He denies any reproducibility on palpation to that region. He has noted no edema, presyncope or syncope. He h as been not as active recently. PAST MEDICAL HISTORY: 1. Dupuytren contracture. 2. Gout. 3. Hyperglycemia. 4. Dyslipidemia. 5. Coronary artery disease with MN and PTCA and stenting to the obtuse marginal in September 2017. FAMILY HISTORY: CVA, hypertension and leukemia. OUTPATIENT MEDICATIONS: Include atorvastatin 80 mg p.o. daily, carvedilol 3.125 p.o. twice daily, li sinopril 5 mg p.o. daily, prasugrel 10 mg p.o. daily, indomethacin, l-carnitine, fish oil, - D-ribose , vitamin A, vitamin D, vitamin K, Co Q10. ALLERGIES: No known drug allergies. SOCIAL HISTORY: Patient is . He is a nonsmoker. He reports 2 drinks nightly. REVIEW OF SYSTEMS: As per HPI. A complete 10-point review of systems was obtained and is negative e xcept for what is dictated. PHYSICAL EXAMINATION: VITAL SIGNS: BP of 132/80, heart rate of 55, respirations 14, O2 saturation s aturation 94% on room air, temp 97.5 degrees Fahrenheit. GENERAL: He is a very pleasant male in no a pparent distress. HEENT: Head is normocephalic, atraumatic. Eyes are without scleral icterus. Muc ous membranes moist. HEART: Regular rate and rhythm with a 2/6 systolic ejection murmur. Carotids are without bruit. LUNGS: Clear to auscultation bilaterally. ABDOMEN: Soft, nontender. No hepati c jugular reflex. No pain on palpation and normoactive bowel sounds. : Without Farrar present. S KIN: Warm and dry without edema. PSYCH: Normal mood and affect. NEURO: No gross neurologic defic its detected. LABORATORY DATA: CBC with WBC 7.46, hemoglobin 15, hematocrit 42.5, platelet count of 215. BMP with sodium 145, potassium 3.6, chloride 110, CO2 23, BUN 18, creatinine 0.8, glucose 120, triglycerides 117, total cholesterol 135, LDL 57, HDL 55. 12-lead ECG from 02/04/18 at 9:15, personally interprete yessy, demonstrates sinus rhythm with inferior cues. There are no acute ST wave abnormalities detected. Troponins have been negative x2. Chest x-ray is unremarkable. I discussed patient's care with Doctors Rocky and Billy. Telemetry reviewed, shows sinus rhythm without arrhythmia present. IMPRESSION AND PLAN: The patient is a 67-year-old male with ongoing chest discomfort. 1. Chest pain. Worrisome for acute coronary syndrome. Thus far, his troponins and EKG are negative . Reviewed options and patient is amenable to left heart catheterization for further evaluation. Ri sks, benefits, and alternatives reviewed. 2. Coronary artery disease. He is appropriately managed with aspirin and statin. 3. Ischemic cardiomyopathy. He has a low-normal ejection fraction and has no symptoms of congestive heart failure currently. He may continue lisinopril and carvedilol. 4. Hypertension. Blood pressure looks adequately controlled. 5. Dyslipidemia. His LDL is not currently reported. He is on atorvastatin 80 mg by mouth daily. Thomas irving recommendations to follow further clinical course. /[id number]/MODL
[2018-02-04] MEDS ORDERED: fentaNYL 100 MCG/2 ML INJ ONE (13:47)
[2018-02-04] MEDS ORDERED: LIDOCAINE 1% 300 MG/30 ML SDV ONE (13:47)
[2018-02-04] MEDS ORDERED: MIDAZOLAM 2 MG/2 ML VIAL ONE (13:47)
[2018-02-04] MEDS ORDERED: VERAPAMIL 5 MG/2 ML VIAL ONE (13:48)
[2018-02-04] MEDS ORDERED: IOPAMIDOL (ISOVUE-370) 150 ML BTL IV ONE (13:48)
[2018-02-04] MEDS ORDERED: HEPARIN 10,000 UNIT/10 ML MDV (1,000 UNIT/ML) ONE (13:48)
--- NOTE | 2018-02-04 13:59 | PDPROPOC ---
Sedation Plan of Care Sedation Plan of Care: vital signs stable, mental status noted, patient educated of risks, benefits, alternatives, patient can tolerate sedation ASA Classification: ASA 2 Planned drugs: fentanyl, midazolam Mallampati Score: Class 1 Mallampati Reference Image: Patient passed 3-3-2 rule?: Yes
[2018-02-04 14:33] LABS: INR 1.12 (0.83-1.16); PROTIME(PATIENT) 14.6 SEC (12.0-15.0)
--- NOTE | 2018-02-04 15:41 | PDDXCAT ---
Diagnostic Cath Note - . Date: 02/04/18 [employer]: Billy Indication: Class III or IV angina, which improves to class I/II w medical therapy - Procedure Access: right wrist Procedure: left heart catheterization, coronary angiography, left ventriculogram - Materials Left Heart Cath size: 5F Left Heart Cath materials: pigtail, other (Leggett 4) - Findings-Left Heart Catheterization LM: Normal LAD: Normal LCX: Dominant: Stents widely patent with plaque seen in the wall of the stent. RCA: Non dominant EDP: 14 mm of mercury LVEF: 50% Wall motion: Inferolateral akinesis Complications: None Estimated blood loss: <50ml Closure method: TR Band Assessment: Widely patent site of prior stenting. No new obstructive stenosis identified. Evidence of inferolateral myocardial infarction with ejection fraction of 50% normal filling pressures. Plan: Continue secondary prevention. Broad differential diagnosis for epigastric pain and shoulder pain. Patient Problems: Problems Problem Status Onset Chest pain Acute chronic disease mgmt/transitional care Acute Acute FL Acute
--- NOTE | 2018-02-04 16:11 | ASDISCHSUM ---
Discharge Information Plan Status:Home with No Needs Medically Cleared to Leave: Discharge Date: CM D/C Disposition: ADT D/C Disposition:Home, Routine, Self-Care Projected Discharge Date: Transportation at D/C: Discharge Delay Reason: Follow-Up Date: Discharge Slot: Final Diagnosis: Placement Information Patient Contact Information Contact Name:MORENO Relationship: Address:[address] [place] [address] City:[place] Alternate Phone: [facility]/Zip Code:[place] [address] Email: Financial Information Financial Class:HMO and PPO Plans Primary Plan Desc:BC OUT OF STATE PPO Primary Plan Number:[id number] Secondary Plan Desc:MEDICARE OUTPATIENT Secondary Plan Number:[id number] Assessment Information LACE LACE Length of stay for Answers: Less than 1 day current admission Acuity / Level of Answers: No Care: Did the patient have an inpatient admission? Comorbidities - select Answers: Coronary Artery Disease all that apply # of Emergency department Answers: 1-2 visits in the last 6 months Score: 3 Date Signed: 02/04/2018 04:10 PM Electronically Signed By:Amirah Hilario RN Intervention Information
--- NOTE | 2018-02-04 18:45 | GDS ---
[f rep st] DISCHARGE SUMMARY DISCHARGE DIAGNOSES: 1. Acute chest pain thought noncardiac. 2. Coronary artery disease status post stenting of the circumflex in September 2017. 3. Hyperlipidemia. 4. Gout. 5. Dupuytren's contracture. HISTORY OF PRESENT ILLNESS: A 67-year-old male with recent stenting of his circumflex artery who pre sents with pain in his chest and back similar to his previous ME. For details of patient's initial p resentation, please see the history and physical dated 02/04/2018. CONSULTATIVE SERVICES: Cardiology. PROCEDURES: On 02/04/2018, patient underwent cardiac catheterization that showed a widely patent magdalena nt in the circumflex with no new obstructive stenoses. HOSPITAL COURSE: Chest pain: Patient was admitted, ruled out with serial troponins and EKGs, taken immediately for cardiac cath imaging which confirmed a patent stent and nonobstructive coronary disea se. The patient will be stabilized post catheterization and instructed to follow in the outpatient s etting with Dr. Feliz in 2-3 weeks. MEDICATIONS: At the time of disposition: Please reference the med rec printed on 02/04/2018. No ch anges were made to the patient's outpatient med list. FOLLOWUP APPOINTMENTS: Include with Dr. Feliz in 2-3 weeks. PENDING STUDIES: At the time of this dictation are none. /[id number]/MODL
[2018-02-04 19:01] VITALS: BP 119/76
[2018-02-04] MEDS ORDERED: CARVEDILOL 3.125 MG TAB PO SCH (21:00)
[2018-02-05] MEDS ORDERED: LISINOPRIL 2.5 MG TAB PO SCH (09:00)
[2018-02-05] MEDS ORDERED: ATORVASTATIN CALCIUM 40 MG TAB PO SCH (09:00)
[2018-02-05] MEDS ORDERED: PRASUGREL HCL 10 MG TAB PO SCH (09:00)
[2018-02-05] MEDS ORDERED: ASPIRIN 325 MG TAB PO SCH (09:00)
== END 2018-02-04 18:59 | disposition home or self-care (01) ==
LOC: F2W 07:50
PROVIDERS: ADMIT Family Medicine; ATTEND Hospitalist
PROC: 4A023N7 Measurement of Cardiac Sampling and Pressure, Left Heart, Percutaneous Approach (ICD-10-PCS; principal; 2018-02-04)
PROC: B2151ZZ Fluoroscopy of Left Heart using Low Osmolar Contrast (ICD-10-PCS; principal; 2018-02-04)
PROC: B2111ZZ Fluoroscopy of Multiple Coronary Arteries using Low Osmolar Contrast (ICD-10-PCS; principal; 2018-02-04)
DX: R07.9 Chest pain, unspecified (principal); I25.10 Atherosclerotic heart disease of native coronary artery without angina pectoris; I25.5 Ischemic cardiomyopathy; R00.2 Palpitations; I10 Essential (primary) hypertension; E78.5 Hyperlipidemia, unspecified; M10.9 Gout, unspecified; M72.0 Palmar fascial fibromatosis [Dupuytren]; I25.2 Old myocardial infarction; Z87.891 Personal history of nicotine dependence; Z82.3 Family history of stroke; Z80.6 Family history of leukemia; Z95.5 Presence of coronary angioplasty implant and graft
CPT/HCPCS: 71046; 93005; 93458; C1769; G0378; J1644; J2250; J3010; Q9967